=== PATIENT | male | born 1975 | race Caucasian/White ===

== ENCOUNTER 2023-05-25 16:34 | Outpatient (REF) | payer MEDICAID, SELFPAY ==
[2023-05-25 16:00] LABS: Abs Immature Grans 0.05 10^3/uL (0.0-0.06); Absolute Basophil Count 0.07 10^3/uL (0.0-0.2); Absolute Eosinophil Count 0.17 10^3/uL (0.0-0.7); Basophils % 0.4; HCT 40.5 % (40.0-50.0); HGB 13.6 g/dL (13.5-17.5); Immature Grans % 0.3; Lymphocytes % 15.4; MCH 30.4 pg (27.0-33.0); MCHC 33.6 % (32.0-36.0); MCV 90 fL (80-95); MPV 11.6 fL (8.0-11.0); Monocytes % 4.6; Neutrophils % 78.3; Platelet Count 286 10^3/uL (130-400); RBC 4.48 10^6/uL (4.36-5.78); RDW 12.7 % (11.8-14.1); WBC 16.87 10^3/uL (4.4-10.8)
[2023-05-25 16:02] LABS: Absolute Monocyte Count 0.78 10^3/uL (0.1-0.8); Absolute Neutrophil Count 13.21 10^3/uL (1.2-6.7)
[2023-05-25 17:02] LABS: ALT 22 U/L (16-63); AST 16 U/L (15-37); Albumin 4.1 g/dL (3.4-5.0); Alkaline Phosphatase 103 U/L (46-116); Anion Gap 8.6 mmol/L (3-11); BUN 10 mg/dL (7-18); Bilirubin, Total 0.4 mg/dL (0.2-1.0); CO2 26.4 mmol/L (21.0-32.0); Chloride 103 mmol/L (98-107); Estimated GFR 91.69 (mL/min/1.73m2); Glucose 106 mg/dL (74-106); Potassium 4.5 mmol/L (3.5-5.1); Sodium 138 mmol/L (136-145); TSH 2.14 uIU/mL (0.36-3.74); Total Protein 7.4 g/dL (6.4-8.2); Vitamin B12 550 pg/mL (193-986)
[2023-05-31 11:47] LABS: Thiamine (Vitamin B1), WB 157 nmol/L (70-180)
== END 2023-05-25 16:35 | disposition home or self-care (01) ==
LOC: NCHCN 16:34
PROVIDERS: Visit Provider Student in an Organized Health Care Education/Training Program
DX: R10.9 Unspecified abdominal pain (principal)
CPT/HCPCS: 80053; 82607; 82746; 84425; 84443; 85025